=== PATIENT | female | born 1990 | race Caucasian/White ===

== ENCOUNTER → 2020-12-21 14:56 | Outpatient (BNVA) | payer BC, MEDICAID, SELFPAY | PROVIDERS: PCP Nurse Practitioner; Visit Provider Nurse Practitioner | DX: Z12.4 Encounter for screening for malignant neoplasm of cervix (principal); Z11.3 Encounter for screening for infections with a predominantly sexual mode of transmission | CPT/HCPCS: 87491; 87591; 88175 ==

== ENCOUNTER 2021-01-17 21:32 | Emergency (ER) | payer BC, MEDICAID, SELFPAY ==
[2021-01-17 22:03] VITALS: BP 118/81; PULSE 70; RESP 15; TEMP 36.2; O2SAT 95; BMI 28.9
[2021-01-17] MEDS: diphenhydrAMINE 50 mg/mL SDV 1mL IVP (22:37)
[2021-01-17] MEDS: EPINEPHrine 1 mg/mL INJ 0.5 MG IM (22:39)
[2021-01-17] MEDS: famotidine 20 mg/2 mL INJ 40 MG IVP (22:40)
--- NOTE | 2021-01-17 22:41 | W.ED.ALLEREA ---
HPI - Allergic Reaction General: Chief complaint: Allergic Reaction Stated complaint: BAD ALLERGIC REACTION Time Seen by Provider: 01/17/21 22:02 Source: patient Mode of arrival: ambulatory Limitations: no limitations History of Present Illness: HPI narrative: 30-year-old female who states she started having swelling in her face along with a rash to her trunk and shortness of breath that started roughly 2 to 3 hours ago. She does have swelling over her right eye. She denies any worsening improving factors. She denies any things that she came into contact with that she is allergic to. Denies any fevers. MD complaint: allergic reaction Associated symptoms: Deny abdominal pain, nausea or vomiting Review of Systems Const: Denies: fever(s), chills, body aches or change in appetite Eyes: Denies: blurry vision or eye discomfort ENMT: Denies: throat pain or dental pain Card: Denies: chest pain Resp: Denies: dyspnea GI: Denies: abdominal pain, nausea, vomiting or diarrhea : Denies: dysuria Musc: Denies: neck pain or back pain Skin/Breast: Reports: rash and pruritus Neuro: Denies: headache(s) Psych: Denies: depression Yair/Lymph: Denies: easy bruising All/Imm: Denies: urticaria PFSH ED PFSH: Medical History Environmental and seasonal allergies Surgical History No history of previous surgery Family History Other Cancer Diabetes Denies family history of Dementia Hypertension Stroke Social History Smoking and tobacco status: former smoker Second hand smoke exposure: No Smoking risk assessment/counseling performed?: No Alcohol intake: never Desire information about alcohol rehabilitation?: No Counseling given: No Desire information about substance/drug rehabilitation?: No Counseling given: No Adopted: No Caregiver/support person: No Lives independently: Yes Household members: significant other and children Housing: House Marital status: Single Number of children: 3 service: No Current occupational status: unemployed Pets and animals: No Current gender identity: Female Female Reproductive History: Date of last menstrual period: 12/08/20 Para: 3 Spontaneous abortions: Yes (1) Physical Exam Const: COMMON NORMALS: no acute distress, patient oriented x3 and healthy appearing HENMT: COMMON NORMALS: normocephalic and atraumatic HEAD & SCALP: normocephalic and atraumatic OTHER: swelling over right eyelid Eye: COMMON NORMALS: Equal, round and reactive pupils present and EOMs intact bilaterally PUPIL: Yes Equal, round and reactive pupils present Neck/C-Spine: COMMON NORMALS: full ROM and supple Chest: COMMONS NORMALS: normal inspection of the chest and normal palpation of entire chest wall Resp: COMMON NORMALS: normal respiratory effort, No retractions, No use of accessory muscles and clear to auscultation bilaterally AUSCULTATION: clear to auscultation bilaterally Cardio: COMMON NORMALS: regular rate, regular rhythm and No murmurs present (Cardio) RATE: regular rate RHYTHM: regular rhythm GI: COMMON NORMALS: Normal to inspection, nondistended, normoactive bowel sounds present, Soft to palpation, non-tender and no masses PALPATION: Yes Soft to palpation Extremity: COMMON NORMALS: normal to inspection and full ROM Neuro: COMMON NORMALS: patient oriented x3, moves all extremities and no focal motor deficits Psych: COMMON NORMALS: mental status grossly normal, Normal thought process present and cooperative THOUGHT PROCESS: Normal thought process present Skin: COMMON NORMALS: no wounds NARRATIVE SKIN EXAM: urticarial rash to trunk Course Vital Signs: Vital signs: Vital Signs Temperature 97.1 F L 01/17/21 22:03 Pulse Rate 58 L 01/17/21 23:04 Respiratory Rate 18 01/17/21 23:04 Blood Pressure 128/98 01/17/21 23:04 Pulse Oximetry 98 01/17/21 23:04 MDM - Allergic Reaction MDM Narrative: Medical decision making narrative: Patient presents here with allergic reaction much improved after IV meds. We will place her on prednisone and she is stable for discharge. She is to return if worsening. Discharge Plan Discharge Patient Disposition: Home Clinical Impression: Allergic reaction Qualifiers: Encounter type: initial encounter Qualified Code(s): T78.40XA - Allergy, unspecified, initial encounter Condition: Stable Prescriptions: New prednisone 50 mg tablet 50 mg PO DAILY Qty: 5 RF: 0 Discharge Orders: Discharge ED (Routine); Ordered 01/17/21 Ordered By: Marcelo López Referrals: Familia Cortes, [facility] [Primary Care Provider] - 1-3 days Discharge Diet: Advance as tolerated Discharge Activity: Resume usual activity Patient Instructions: Allergic Reaction Coding Level of Care Code ED Regional Marketing Manager for [facility] Fwd Exam Comprehensive
[2021-01-17 23:04] VITALS: BP 128/98; PULSE 58; RESP 18; O2SAT 98
--- NOTE | 2021-01-17 23:41 | PC.NURSE ---
Pt reports feeling better. Swelling to R eye appears decreased; pt now able to open it.
[2021-01-17 23:57] VITALS: BP 115/67; PULSE 78; RESP 18; O2SAT 98
[2021-01-18 00:05] VITALS: BP 115/67; PULSE 69; RESP 18; O2SAT 98
== END 2021-01-18 00:08 | disposition home or self-care (01) ==
PROVIDERS: Emergency Provider Emergency Medicine; PCP Nurse Practitioner
DX: T78.40XA Allergy, unspecified, initial encounter (principal); Z87.891 Personal history of nicotine dependence
CPT/HCPCS: 96372; 96374; 96375; 99284; J0171; J1200; J2930; J3490

== ENCOUNTER → 2021-08-13 11:11 | Outpatient (BNVA) | payer BC, MEDICAID, SELFPAY | PROVIDERS: PCP Nurse Practitioner; Visit Provider Nurse Practitioner Family | DX: Z20.822 Contact with and (suspected) exposure to COVID-19 (principal); J02.9 Acute pharyngitis, unspecified; R50.9 Fever, unspecified | CPT/HCPCS: 87071; 87400; 87635; 87880 ==